=== PATIENT | male | born 2000 | race Caucasian/White ===

== ENCOUNTER 2019-01-25 10:55 | Day surgery (SDC) ==
--- NOTE | 2019-01-25 11:24 | Diag Imaging Result Doc PS360 ---
EXAM: CHEST-1 VIEW INDICATION: POSSIBLE SEPSIS TECHNIQUE: One view COMPARISON: 06/28/2014 FINDINGS: The lungs are grossly clear. There is no discrete pleural fluid collection or pneumothorax. The cardiomediastinal silhouette and central vasculature are grossly unremarkable. IMPRESSION: No evidence of acute pathology by plain radiograph. Electronically signed by Cb Bullock 01/25/2019 11:21 AM
--- NOTE | 2019-01-25 11:43 | Diag Imaging Result Doc PS360 ---
NECK AP AND/OR LAT SOFT TISSUE - 01/25/2019 INDICATION: Throat pain and swelling TECHNIQUE: Two views COMPARISON: None FINDINGS: The soft tissues of the neck are normal. Airways are clear. Bones are intact. IMPRESSION: Negative exam. Electronically signed by Buster Carlson 01/25/2019 11:41 AM
[2019-01-25 12:59] LABS: BASO# 0.04 X1000 (0.0-0.2); BASO% 0.2 % (0.0-0.8); EOS# 0.02 X1000 (0.0-0.7); EOS% 0.1 % (0.0-10.0); HEMATOCRIT 47.5 % (42.0-52.0); HEMOGLOBIN 16.4 g/dL (14.0-18.0); IMM GRAN# 0.08 X1000 (0.0-0.04); IMM GRAN% 0.4 % (0.0-0.5); LYMPH# 2.29 X1000 (1.2-3.4); LYMPH% 10.7 % (20.5-51.1); MCH 31.1 PG (27-31); MCHC 34.5 g/dL (33-37); MONO# 2.32 X1000 (0.11-0.59); MONO% 10.8 % (1.7-9.3); MPV 9.7 FL (7.4-10.4); NEUT# 16.67 X1000 (1.4-6.5); NEUT% 77.8 % (42.2-75.2); PLT 295 X1000 (130-400); RBC 5.28 XMIL (4.7-6.1); RDW 12.3 % (11.5-14.5); WBC 21.42 X1000 (4.8-10.8)
[2019-01-25 13:10] LABS: INR 1.18; PROTIME 15.2 Seconds (11.0-16.0)
[2019-01-25 13:12] LABS: PTT 45.4 Seconds (22.3-41.8)
[2019-01-25 13:14] LABS: AGAP 17; ALB/GLOB RATIO 1.8; ALBUMIN 4.8 g/dL (3.5-5.0); ALKALINE PHOSPHATASE 109 U/L (32-122); BUN 16 mg/dL (8-22); CALCIUM 9.6 mg/dL (8.8-10.2); CHLORIDE 96 mmol/L (98-107); CK PROFILE 126 U/L (24-204); COSMO 273; CREATININE 1.1 mg/dL (0.7-1.2); ESTIMATED GFR > 60; GLUCOSE 96 mg/dL (70-104); GOT 17 U/L (10-34); GPT 16 U/L (10-44); POTASSIUM 4.8 mmol/L (3.5-5.1); SODIUM 136 mmol/L (136-145); TCO2 23 mmol/L (25-35); TOTAL BILIRUBIN 0.87 mg/dL (0.20-1.00); TOTAL PROTEIN 7.5 g/dL (6.3-8.3)
[2019-01-25 13:23] LABS: BANDS 1 % (0-1); LYMPHS 6 % (21-51); MONO 10 % (1-9); SEGS 83 % (42-75)
--- NOTE | 2019-01-25 14:28 | Diag Imaging Result Doc PS360 ---
CT NECK W/CONTRAST - 01/25/2019 INDICATION: Please evaluate soft tissues COMPARISON: None FINDINGS: There is enlargement of the palatine tonsils. No mass or fluid collection. There is reactive cervical lymphadenopathy bilaterally. The thyroid is normal. Airways are clear. The sinuses, mastoids, and middle ears are clear. IMPRESSION: Tonsillitis. Reactive cervical lymphadenopathy. This exam was performed using automated exposure control, adjustment of mA or kV according to patient size, and/or use of iterative reconstruction technique Electronically signed by Buster Carlson 01/25/2019 2:26 PM
[2019-01-25 14:42] LABS: URINE SOURCE CLEAN CATCH
[2019-01-25 14:46] LABS: BILIRUBIN URINE SMALL (NEGATIVE); BLOOD URINE TRACE (NEGATIVE); COLOR YELLOW; GLUCOSE URINE NEGATIVE (NEGATIVE); KETONE URINE NEGATIVE (NEGATIVE); LEUKOCYTES URINE NEGATIVE (NEGATIVE); NITRITE URINE NEGATIVE (NEGATIVE); PROTEIN URINE 70 mg/dL (NEGATIVE); SP GRAVITY URINE 1.047; TURBIDITY URINE CLEAR (CLEAR); UROBILINOGEN URINE 8 mg/dL (NORMAL)
[2019-01-25 14:59] LABS: UR EPITHELIAL CELLS <10 /HPF (<10); URINE BACTERIA NEGATIVE /HPF; URINE RBC <10 /HPF (<10); URINE WBC <10 /HPF (<10)
[2019-01-25] MEDS ORDERED: NS 1,000 ML IV ONE (15:05)
[2019-01-25] MEDS ORDERED: PREDNISONE PO ONE (15:12)
[2019-01-25] MEDS ORDERED: CLINDAMYCIN 600 MG/D5W 600 MG/50 ML IVPB IV ONE (15:30)
[2019-01-25] MEDS ORDERED: ZOFRAN IV PRN (15:42)
[2019-01-25] MEDS ORDERED: TYLENOL PO PRN (15:42)
[2019-01-25] MEDS ORDERED: MORPHINE IV PRN (15:44)
[2019-01-25] MEDS: SOLU-MEDROL IV SCH ×2 (18:31→22:54)
--- NOTE | 2019-01-25 19:16 | HISTORY AND PHYSICAL ---
PRIMARY CARE PHYSICIAN: None. CHIEF COMPLAINT: Of sore throat for the past 3 days that has been constant and feels like "knots in his throat". HISTORY OF PRESENTING ILLNESS: This is a 19-year-old male who presents to [facility] with complaints of a sore throat for the past 3 days that is constant pain and feels like " knots in his throat" states he has had a fever as well. He is here visiting family during [place] but he is from [place]. His workup showed a white blood cell count of 21.42, he had a temperature of 102.5 degrees with a pulse of 144. We did do a chest x-ray that showed no evidence of acute pathology by plain radiograph. We did a soft tissue neck x- ray that was negative so we did a neck CT that showed tonsillitis with reactive cervical lymphadenopathy so he will be admitted for further evaluation and treatment. ER MD spoke with ENT who felt that fluids, antibiotics and pain management for an observation stay was sufficient but that they did not need to be consulted unless things changed so he will be admitted for further evaluation and treatment. PAST MEDICAL HISTORY: Of ADD. PAST SURGICAL HISTORY: Of a myringotomy and a 5th metatarsal screw fixation and a right shoulder surgery. FAMILY HISTORY: Reviewed and noncontributory. SOCIAL HISTORY: He currently lives with family, smokes a pack of cigarettes a day and has done so for about 5+ years, denied any alcohol use and uses marijuana daily. LABORATORY DATA: Showed a white blood cell count of 21.42, hemoglobin 16.4, hematocrit 47.5, platelets 295,000, PT and INR of 15.2 and 1.18. Sodium 136, potassium 4.8, chloride 96, CO2 23, BUN of 16, creatinine 1.1, glucose of 96, creatine kinase of 126, troponin of less than 0.010, plasma lactate of 0.7. Urinalysis was negative. Chest x-ray showed no evidence of acute pathology by plain radiograph. Soft-tissue neck x-ray was negative. CT of the neck showed tonsillitis with reactive cervical lymphadenopathy. REVIEW OF SYSTEMS: He was positive for fever, chills, sore throat. Denied any chest pain, coughing, shortness of breath, denied any abdominal pain, constipation, diarrhea, burning or hurting with urination. PHYSICAL EXAMINATION: On arrival he had a temperature of 102.5 degrees, pulse 144, respirations 16, blood pressure 128/85, saturating 96% on room air. GENERAL: This is a 19-year-old male who is lying in the bed and answers questions appropriately. HEENT: Normocephalic, atraumatic. Normal ENT inspection. Oropharynx and nares are clear. NECK: Tender to palpation on the left side of his neck with some lymphadenopathy on the left side. LUNGS: Clear to auscultation bilaterally with equal lung expansion and chest wall movement. HEART: With tachycardia but no murmurs, rubs, or gallops. ABDOMEN: Soft, nontender, nondistended. Bowel sounds are present x4 quadrants. MUSCULOSKELETAL: He had 5/5 strength x4 extremities. NEUROLOGICAL: The cranial nerves 2-12 appear grossly intact. ASSESSMENT: 1. Tonsillitis. 2. Leukocytosis. 3. Fever. 4. Tobacco abuse. 5. Marijuana abuse. OUR PLAN: He will be admitted to the medical unit, placed on morphine 2 mg IV q.3 hours p.r.n., clindamycin 600 mg IV q.8, Solu-Medrol 60 mg IV q.8. He will have clear liquids, Tylenol 650 mg p.o. q.6 hours p.r.n. fever, pain, Zofran 4 mg IV q.4 hours p.r.n. Dictated by FELI Frye for Jourdan Gilmore MD cc: FELI Frye MD
--- NOTE | 2019-01-25 22:49 | HISTORY AND PHYSICAL ---
ADDENDUM: I have seen and examined Mr. Ellis today. Mr. Ellis presented because of odynophagia, sore throat today. On his presentation, he was febrile with a temperature of 102.5 degrees, tachycardic, heart rate was 144. His WBC is up to 21.43 with 83% of lymphocytes. PHYSICAL EXAM: Positive with bilateral tonsil swelling. The left is more than the right and there is exudates on both. LABORATORIES: The patient monos mono screens is negative. We will get a strep throat. IMAGING STUDIES: A CT scan of the neck showed tonsillitis reactive cervical lymphadenopathy. ASSESSMENT: 1. Sepsis secondary to bilateral tonsillitis. 2. Odynophagia secondary to tonsillitis. 3. Acute bilateral tonsillitis with reactive lymphadenopathy associated with exudates. Cannon screen is negative. We will get strep throat testing. 4. Obesity with body mass index of 23.0. 5. Allergy to penicillin noted. PLAN: Mr. Ellis is going to continue on the IV clindamycin, steroids, and pain medicine for now. He will also continue on clear liquid diet and advance as tolerated. Please refer to the details of the history and physical that has been dictated by the YARN FINISHER in the chart. I have reviewed the plan and discussed it with her. cc: Jourdan Gilmore MD
[2019-01-25] MEDS: CLINDAMYCIN 600 MG/D5W 600 MG/50 ML IVPB IV SCH (22:54)
[2019-01-26] MEDS: CLINDAMYCIN 600 MG/D5W 600 MG/50 ML IVPB IV SCH ×2 (03:14→09:02)
[2019-01-26] MEDS: SOLU-MEDROL IV SCH ×2 (03:14→09:02)
[2019-01-26 07:14] LABS: BASO# 0.02 X1000 (0.0-0.2); BASO% 0.1 % (0.0-0.8); HEMATOCRIT 46.2 % (42.0-52.0); HEMOGLOBIN 15.7 g/dL (14.0-18.0); IMM GRAN# 0.03 X1000 (0.0-0.04); IMM GRAN% 0.2 % (0.0-0.5); LYMPH# 1.56 X1000 (1.2-3.4); LYMPH% 10.4 % (20.5-51.1); MCH 30.8 PG (27-31); MCV 90.6 FL (81-99); MONO# 0.35 X1000 (0.11-0.59); MONO% 2.3 % (1.7-9.3); MPV 9.9 FL (7.4-10.4); NEUT# 13.03 X1000 (1.4-6.5); PLT 315 X1000 (130-400); RDW 12.3 % (11.5-14.5); WBC 14.99 X1000 (4.8-10.8)
[2019-01-26 07:50] LABS: AGAP 18; BUN 18 mg/dL (8-22); CALCIUM 10.1 mg/dL (8.8-10.2); CHLORIDE 96 mmol/L (98-107); COSMO 280; ESTIMATED GFR > 60; GLUCOSE 136 mg/dL (70-104); POTASSIUM 4.6 mmol/L (3.5-5.1); SODIUM 138 mmol/L (136-145); TCO2 24 mmol/L (25-35)
[2019-01-26 08:17] VITALS: BP 147/92
--- NOTE | 2019-01-26 09:59 | DISCHARGE SUMMARY ---
ADMISSION DATE: 01/25/2019 DISCHARGE DATE: 01/26/2019 REASON FOR ADMISSION: He is complaining of sore throat for 3 days. It has been constant and feels like knots in his throat. HISTORY OF PRESENT ILLNESS: A 19-year-old who presented to [facility] with complaints of sore throat for the past 3 days, constant pain, feels like knots in his throat. States he has had fever as well. He is visiting family for [employer]. Lives in [place]. Workup showed white blood cell count was 21,420, temperature of 102.5 degrees, pulse 144. Did a chest x-ray that showed no evidence of acute pathology or pneumonia or infiltrate. Did a soft tissue neck x-ray that was negative. Checked a CT of the neck that showed tonsillitis, reactive cervical lymphadenopathy, so begun on antibiotics and given some fluids. He felt much better the following morning, wanted to go home. PAST MEDICAL HISTORY: History of attention deficit disorder. PAST SURGICAL HISTORY: He has had a myringotomy when he was a kid, and a fifth metatarsal screw fixation of the right shoulder, and he has had right shoulder surgery. ALLERGIES: He is allergic to penicillin. HOSPITAL COURSE: He was put on clindamycin, and I am going to let him go home on Levaquin. His throat culture grew out group A strep. Blood culture is pending. Nasopharyngeal swab for influenza was negative for A and B. Will put him on Levaquin 750 mg p.o. daily since he is allergic to penicillin, and give enough for 7 days. cc: Alexander Morrissey MD
--- NOTE | 2019-01-26 23:01 | PROVIDER DOCUMENTATION ---
This chart was entered by Rosemary Pina Scribe, acting as scribe for Rubén Rojas MD. HPI-General Adult - General Chief Complaint: SEPSIS ALERT - D Stated Complaint: SORE THROAT Time Seen by Provider: 01/25/19 11:05 Source: patient Allergies/Adverse Reactions: Patient Allergies Allergy/AdvReac Type Severity Reaction Status Date / Time Penicillins Allergy Unknown SWELLING Verified 01/25/19 12:29 Home Medications: Home Medication List Medication Instructions Recorded Confirmed Last Taken Type Acetaminophen [Tylenol] 650 mg PO Q6H PRN PRN tab 01/26/19 Unknown Rx Levofloxacin [Levaquin] 750 mg PO DAILY 7 Days #7 tab 01/26/19 Unknown Rx Methylprednisolone [Medrol Dosepak] 4 mg PO DIRECTED 7 Days #1 pkg 01/26/19 Unknown Rx - History of Present Illness -Gen Adult Nature of Presenting Problems: Patient is a 19 y/o male presenting to the ED today c/o sore throat. Patient reports onset of symptoms 2 days ago. Patient c/o constant pain and swelling and states he feels like he has knots in his throat. Patient reports history of recurrent tonsilar and throat infections. Patient reports he has had fever. Patient reports he has pain with swallowing. Patient reports some vocal change and cough. Patient c/o generalized body aches. Patient reports he smokes marijuana and took a Xanax last week. Patient denies all other signs/symptoms. Location of Pain/Injury: reports: other (throat) Pain Radiation: reports: no radiation Quality of Pain: reports: other ("knotted") Onset/Duration: reports: 2 days ago Timing: reports: still present, getting worse Modifying Factors: worse with: eating Associated Symptoms: reports: fever/chills, other (sore throat) Similar Symptoms Previously?: Yes (Prevous strep throat episodes) Recently seen or treated by another doctor?: No Review of Systems - Adult - REVIEW OF SYSTEMS - ADULT Constitutional: reports: fever. denies: chills Eyes: reports: no symptoms reported Ears, Nose, Mouth & Throat: reports: hoarseness, throat pain, throat swelling Cardiovascular: denies: chest pain Respiratory: reports: cough. denies: shortness of breath Gastrointestinal: reports: no symptoms reported Genitourinary: reports: no symptoms reported Musculoskeletal: reports: no symptoms reported Integumentary: reports: no symptoms reported Neurological: reports: no symptoms reported Psychiatric: reports: no symptoms reported Endocrine: reports: no symptoms reported Hematologic/Lymphatic: reports: no symptoms reported Allergic/Immunologic: reports: no symptoms reported Past History - Adult - PAST MEDICAL HISTORY-ADULT Review of Records: reports: Old Records Reviewed Major Childhood Illnesses: reports: denies history Cardiovascular: reports: denies history Respiratory: reports: denies history Gastrointestinal: reports: denies history Obstetrical/Gynecological: reports: denies history Genitourinary: reports: denies history Musculoskeletal: reports: denies history Neurological: reports: denies history Psychiatric: reports: other (ADD) Endocrine/Immune: reports: denies history Other Conditions: reports: denies history - PRIOR SURGERIES/PROCEDURES Surgical/Procedure History: reports: other (myringotomy, screw fixation right fifth metatarsal) - IMMUNIZATION STATUS Childhood Immunizations: See Nurse Assessment Flu Vaccine: See Nurse Assessment - FAMILY HISTORY Family History: reviewed, not pertinent Physical Exam-General - PHYSICAL EXAM-ADULT Initial Vital Signs Reviewed: Yes - CONSTITUTIONAL General Appearance: alert, no apparent distress - EYES Eyes: negative: conjuctival exudate, sclera injected, scleral icterus, subconjunctival hemorrhage - HEAD, EARS, NOSE, MOUTH & THROAT HENMT: normocephalic/atraumatic, pharyngeal erythema, tonsillar exudate (on left), other (pharyngeal swelling predominantly on left with exudate, muffled voice) - NECK Neck: lymphadenopathy (on left), other (tender on left side of neck with swelling) - RESPIRATORY Respiratory: lungs clear, normal breath sounds, no respiratory distress, no accessory muscle use - CARDIOVASCULAR Cardiovascular: tachycardia - GASTROINTESTINAL (ABDOMEN) Abdominal Exam: non tender, soft - MUSCULOSKELETAL Extremity: normal inspection, no pedal edema - SKIN Integumentary: normal color, normal turgor - NEUROLOGIC Neurologic: grossly normal - PSYCHIATRIC Psych/Mental Status: normal mood/affect, normal thought content, normal thought process Progress - PLAN OF CARE/RESULTS Progress/Plan/Lab Results: Vital Signs - 8 hr 01/25/19 10:58 Temperature 102.5 F H Pulse Rate 144 H Respiratory Rate 16 Blood Pressure 128/85 O2 Sat by Pulse Oximetry 96 Orders Category Date Time Status Cardiac Monitoring DIRECTED Care 01/25/19 11:02 Active IV Insertion ORDERED Care 01/25/19 11:02 Active Notify MD of + Sepsis Screen NOW Care 01/25/19 11:02 Active Notify Physician As Ordered Care 01/25/19 11:02 Active CHEST-1 VIEW [RAD] Stat Exams 01/25/19 11:02 Ordered BLOOD CULTURE [BLDCUL] Stat Lab 01/25/19 11:02 Uncollected CBC WITH DIFF [HEME] Stat Lab 01/25/19 11:02 Uncollected CK PROFILE [SP CHEM] Stat Lab 01/25/19 11:02 Uncollected COMPREHENSIVE METABOLIC PANEL [CHEM] Stat Lab 01/25/19 11:02 Uncollected DIRECT STREP Stat Lab 01/25/19 10:28 Received INFLUENZA SCREEN A/B Stat Lab 01/25/19 10:28 Received LACTATE, PLASMA [CHEM] Q3H Lab 01/25/19 11:15 Uncollected LACTATE, PLASMA [CHEM] Q3H Lab 01/25/19 14:15 Uncollected LACTATE, PLASMA [CHEM] Q3H Lab 01/25/19 17:15 Uncollected PROTIME WITH INR [COAG] Stat Lab 01/25/19 11:02 Uncollected PTT [COAG] Stat Lab 01/25/19 11:02 Uncollected TROPONIN T Stat Lab 01/25/19 11:02 Uncollected URINALYSIS W/POSS RFLX CULT [URINALYSIS] Stat Lab 01/25/19 11:02 Uncollected Oxygen Device Stat Oth 01/25/19 11:02 Active Result Diagrams: 01/26/19 06:42 01/26/19 06:42 - REASSESSMENT Reassessment #1 Status: other (Discussed with ENT who was agreeable with admission with abx and steroids. The patient was discussed with the hosptialist team who accepted the patient.) - XRAY 1 XRAY Study: other (Neck) Impression: See EMR Report (NECK AP AND/OR LAT SOFT TISSUE - 01/25/2019 INDICATION: Throat pain and swelling TECHNIQUE: Two views COMPARISON: None FINDINGS: The soft tissues of the neck are normal. Airways are clear. Bones are intact. IMPRESSION: Negative exam. Electronically signed by Buster Carlson 01/25/2019 11:41 AM 01/25/19 1141 Interpreting Physician: Buster Carlson MD Dictated Date/Time: 01/25/19 1141 cc: Rubén Rojas MD; None,PCP) 2 XRAY Study: Chest Impression: See EMR Report (EXAM: CHEST-1 VIEW INDICATION: POSSIBLE SEPSIS TECHNIQUE: One view COMPARISON: 06/28/2014 FINDINGS: The lungs are grossly clear. There is no discrete pleural fluid collection or pneumothorax. The cardiomediastinal silhouette and central vasculature are grossly unremarkable. IMPRESSION: No evidence of acute pathology by plain radiograph. Electronically signed by Cb Bullock 01/25/2019 11:21 AM 01/25/19 1121 Interpreting Physician: Cb Bullock MD Dictated Date/Time: 01/25/19 1121 cc: Minnie Aguirre MD; None,PCP) - CT/MRI 1 CT Study: Neck Impression: See EMR Report (CT NECK W/CONTRAST - 01/25/2019 INDICATION: Please evaluate soft tissues COMPARISON: None FINDINGS: There is enlargement of the palatine tonsils. No mass or fluid collection. There is reactive cervical lymphadenopathy bilaterally. The thyroid is normal. Airways are clear. The sinuses, mastoids, and middle ears are clear. IMPRESSION: Tonsillitis. Reactive cervical lymphadenopathy. This exam was performed using automated exposure control, adjustment of mA or kV according to patient size, and/or use of iterative reconstruction technique Electronically signed by Buster Carlson 01/25/2019 2:26 PM 01/25/19 1426 Interpreting Physician: Buster Carlson MD Dictated Date/Time: 01/25/19 1422 cc: Rubén Rojas MD; None,PCP) - CONSULTS/PCP/HOSPITALIST Notification #1 *Consult/PCP/Hospitalist*: ENT Time Discussed: 15:04 (Discussed patient with ENT who will call back with recommendations) Departure - Departure Date of Disposition Decision: 01/25/19 Time of Disposition Decision: 15:42 DIAGNOSIS: Tonsillitis Disposition: ADMITTED INPATIENT 09 Certified Medical Emergency: Emergent Condition: Stable - Critical Care Note This patient required my direct & personal management of CC.: No Attestation - Physician/ DELIA Attestation Patient care was provided by Advanced Practice Provider:: No The physician spent face to face time with patient:: Yes Advanced Practice Provider documentation review:: Supervising physician onsite and consulted in the evaluation and care of this patient. The physician did have a face to face encounter with the patient. This chart was documented by the indicated scribe, (Rosemary Pina Scribe) and accurately reflects the services I performed and decisions made by me, Rubén Rojas MD, as attested by the provider's signature.
== END 2019-01-26 10:58 | disposition home or self-care (01) ==
LOC: ED 10:55 → 4N 10:55 → SUATTDRO 10:56 → OPS 10:56
PROVIDERS: ATTEND Internal Medicine